=== PATIENT | male | born 1950 | race African-American/Black ===

== ENCOUNTER 2019-05-09 18:48 | Emergency (ER) | payer MEDICARE ==
[2019-05-09] MEDS ORDERED: ACETAMINOPHEN EXTRA STRENGTH 500 MG TABLET ONE (20:48)
== END 2019-05-09 21:04 | disposition home or self-care (01) ==
LOC: EDH 18:48
DX: M17.0 Bilateral primary osteoarthritis of knee (principal); I10 Essential (primary) hypertension; I25.10 Atherosclerotic heart disease of native coronary artery without angina pectoris
CPT/HCPCS: 73560; 93970

== ENCOUNTER 2019-05-11 13:23 | Emergency (ER) | payer MEDICARE | END 2019-05-11 13:50 | disposition home or self-care (01) | LOC: EDH 13:23 | DX: M17.0 Bilateral primary osteoarthritis of knee (principal); I10 Essential (primary) hypertension; I25.10 Atherosclerotic heart disease of native coronary artery without angina pectoris | CPT/HCPCS: 99281 ==